=== PATIENT | female | born 1995 | race Hispanic/Latino ===

== ENCOUNTER → 2024-09-01 | Outpatient (CLI) | payer BC | END | disposition home or self-care (01) | LOC: RAH 14:04 | PROVIDERS: ATTEND Student in an Organized Health Care Education/Training Program | DX: S42.031A Displaced fracture of lateral end of right clavicle, initial encounter for closed fracture (principal); M24.111 Other articular cartilage disorders, right shoulder; M25.511 Pain in right shoulder; M79.89 Other specified soft tissue disorders; M19.011 Primary osteoarthritis, right shoulder; X58.XXXA Exposure to other specified factors, initial encounter; Y93.89 Activity, other specified; Y92.89 Other specified places as the place of occurrence of the external cause; Y99.8 Other external cause status | CPT/HCPCS: 73221 ==

== ENCOUNTER 2024-10-04 09:03 | Day surgery (SDC) | payer BC ==
[2024-10-02 14:03] VITALS: BP 160/87; PULSE 61; RESP 18; TEMP 98.8
[2024-10-02 14:20] LABS: BASOPHILS # (AUTO) 0.07 K/uL (0.00-0.20); BASOPHILS % (AUTO) 0.8 % (0.0-5.0); EOSINOPHILS # (AUTO) 0.14 K/uL (0.00-0.70); EOSINOPHILS % (AUTO) 1.6 % (0.0-8.0); HEMATOCRIT 46.1 % (42-54); IMMATURE GRANULOCYTE ABSOLUTE 0.03 K/uL (0-1); LYMPHOCYTES # (AUTO) 1.7 K/uL (1.0-4.8); MEAN CORPUSCULAR HEMOGLOBIN 30.5 pg (27.0-33.0); MEAN CORPUSCULAR HGB CONC 34.1 g/dL (32.0-36.0); MEAN CORPUSCULAR VOLUME 89.5 fL (79-99); MONOCYTES # (AUTO) 0.6 K/uL (0.1-1.0); MONOCYTES % (AUTO) 6.9 % (3.0-13.0); NEUTROPHILS % (AUTO) 70.3 % (40.0-77.0); PLATELET COUNT (AUTO) 245 K/uL (130-400); RED BLOOD CELL COUNT(AUTO) 5.15 MIL/uL (4.50-6.20); RED CELL DISTRIBUTION WIDTH 12.5 % (11.0-15.5); WHITE BLOOD COUNT (AUTO) 8.6 K/uL (4.8-10.8)
[2024-10-02 14:31] LABS: POTASSIUM 4.2 mmol/L (3.5-5.1)
[2024-10-02 14:36] LABS: INR 0.98 (0.85-1.15); PROTHROMBIN TIME 10.6 SEC (9.6-11.6)
[2024-10-02 14:37] LABS: PARTIAL THROMBOPLASTIN TIME 25.6 SEC (26.3-35.5)
[~2024-10-04] VITALS: Ht 182.9 cm; Wt 121.7 kg
[2024-10-04] VITALS (13 sets, daily range): BP systolic 119–136; BP diastolic 60–89; PULSE 62–75; RESP 16–20; TEMP 97–97.9
[~2024-10-04 09:03] MED LIST: MELO-106 PO
[2024-10-04] MEDS: LACTATED RINGERS 1000ML 1,000 ML IV ONE (09:37)
[2024-10-04] MEDS: ceFAZolin SODIUM 2 GM VIAL ONE (09:38)
[2024-10-04] MEDS: ceFAZolin SODIUM 1 GM VIAL ONE ×2 (09:38→13:39)
[2024-10-04] MEDS ORDERED: acetaMINOPHEN 100 ML ONE (09:56)
[2024-10-04] MEDS ORDERED: FAMOTIDINE 20MG VIAL IV ONE (09:56)
[2024-10-04] MEDS ORDERED: ROPivacaine 0.5% 5MG/ML 30ML ONE (10:05)
[2024-10-04] MEDS ORDERED: ketaMINE 50MG/ML SYRINGE 50 MG/ML DISP.SYRIN ONE (10:05)
[2024-10-04] MEDS ORDERED: FENTanyl CITRate PF 50 MCG/1 ML 2ML VIAL ONE (10:07)
[2024-10-04] MEDS ORDERED: proPOFol 10 MG/ML 20ML VIAL IV ONE (10:07)
[2024-10-04] MEDS ORDERED: rocuRONium bROMide 10MG/1ML 5ML VL ONE ×3 (10:07→14:46)
[2024-10-04] MEDS ORDERED: dexaMETHasone SOD PHOSPHATE 10MG/ML 1ML VIAL ONE (12:14)
[2024-10-04] MEDS ORDERED: ondanSETRON 4MG INJ ONE (12:14)
[2024-10-04] MEDS ORDERED: EPINEPHrine PF 1MG (1:1,000) 1 MG/ML AMP ONE (12:22)
[2024-10-04] MEDS: ceFAZolin SODIUM 1 GM VIAL IRRIG ONE ×2 (13:09→14:27)
[2024-10-04] MEDS ORDERED: ePHEDrine SULFate 50 MG/ML AMPULE ONE (14:23)
[2024-10-04] MEDS ORDERED: GLYCOPYRROLATE 0.2 MG/ML 5 ML VIAL ONE (15:18)
[2024-10-04] MEDS ORDERED: NEOSTIGMINE METHYLSULFATE 1MG/ML IV ONE (15:19)
[2024-10-04] MEDS ORDERED: HYDR-4060 PO (15:36)
[2024-10-04] MEDS: ketOROlac 30MG VIAL (30MG/ML) ONE (16:01)
--- NOTE | 2024-10-04 16:40 | OP ---
Operative Note: DATE OF PROCEDURE: 10/04/24 SURGEON: AILYN JOINER MD AWNING MAKER AND INSTALLER: Donnell Darby ANESTHESIA: General and interscalene block ANESTHESIOLOGIST/STAFF COMMAND AND CONTROL OFFICER: Makenna Pires and Carlyle Fritz PREOPERATIVE DIAGNOSIS: Right shoulder superior labral anterior to posterior POSTOPERATIVE DIAGNOSIS: Right shoulder superior labral anterior to posterior PROCEDURE: Right shoulder arthroscopic labral repair ESTIMATED BLOOD LOSS: 10 cc FINDINGS: On in reading the shoulder joint with the arthroscope from [facility] standard posterior portal were able to visualize the shoulder joint with diffuse mild synovitis. After making our anterior portal we could probe the labrum N/C significant excursion of the superior aspect with the even more excursion of the superior anterior aspect. When visualizing the rotator cuff the subscapularis insertion was intact. long head of the biceps exited the rotator interval with healthy-appearing tissue. The supraspinatus and infraspinatus tendons were in tact. INDICATIONS: 29-year-old male with a right shoulder pain who was failing conservative management. He was found on MRI to have a SLAP tear. Clinically he had symptoms and signs that were consistent with labral tear with minimal other signs positive for subacromial impingement. After discussion of the risks, benefits, and alternatives, he voluntarily agreed to undergo the aforementioned procedure. DESCRIPTION OF PROCEDURE: Patient was properly identified in the preoperative holding area. Surgical site marking was verified and surgery consent reviewed. The patient was then taken to the operating room and placed in supine position on the OR table. After induction of general anesthesia, preoperative antibiotics were given, all bony prominences were well-padded as the patient was transitioned into beach chair position. The right upper extremity was then prepped and draped in usual sterile fashion. Surgical time out was done verifying correct surgery, side, site, and location to be performed. We then began the procedure by using an 18-gauge spinal needle to inject the shoulder joint with normal saline to distend the joint capsule. A posterior lateral portal was established using 11 blade and we inserted our arthroscope through this portal. We established an anterior portal using needle localization under direct visualization and placed a working cannula through this portal. We then performed a diagnostic arthroscopy with the aforementioned findings. We then evaluated the tear of the labrum along the superior and anterior aspect of the glenoid. We noted it to be redundant with increased excursion from 11 o'clock to 1 o'clock. We noted complete detachment around 2 o'clock to 3 o'clock. We debrided the footprint of the insertion site. We then passed a 1.8 mm FiberTak suture anchor anteriorly around the 1 o'clock position. Using a superior portal and a Lasso type device we passed the suture around the labrum and cinched it down in the anchor. We debrided some of the free edge of the labrum between the 12 o'clock to 1 o'clock position. We attempted to achieve and angle for further repair of the posterior superior portion with a our posterior and superior portals without adequate angle. We noted that the labrum still had some increased redundancy anteriorly and elected to place a 2nd 1.8 mm FiberTak suture anchor at the 2 o'clock position. Due to inability to achieve and angle for further repair, we elected to leave the remaining tissue was it was. The long head of the biceps appeared healthy so we elected to not perform a any kind of tenotomy or tenodesis. We then removed as much of the arthroscopic fluid as possible and removed the arthroscopic instruments and camera. We expressed some the remaining fluid from the surrounding soft tissues. 3-0 nylon was then used to close the skin portals. Sterile soft dressing was applied. Patient was then placed into a shoulder immobilizer, awakened from anesthesia, and taken the recovery room in stable condition. AILYN JOINER MD Oct 04, 2024 16:40
== END 2024-10-04 16:34 | disposition home or self-care (01) ==
LOC: DAH 09:03 → EDSEX 14:00 → DAH 16:34
PROVIDERS: ATTEND Student in an Organized Health Care Education/Training Program
DX: S43.431A Superior glenoid labrum lesion of right shoulder, initial encounter (principal); M24.111 Other articular cartilage disorders, right shoulder; M25.511 Pain in right shoulder; E11.9 Type 2 diabetes mellitus without complications; I10 Essential (primary) hypertension; Z87.891 Personal history of nicotine dependence; Z90.89 Acquired absence of other organs; Z98.890 Other specified postprocedural states; Z79.01 Long term (current) use of anticoagulants; Z79.899 Other long term (current) drug therapy; X58.XXXA Exposure to other specified factors, initial encounter; Y93.89 Activity, other specified; Y92.89 Other specified places as the place of occurrence of the external cause; Y99.8 Other external cause status
CPT/HCPCS: 80048; 85025; 85610; 85730; 36415; 29807; 64415; C1713 ×4; A4663; J7120 ×2; J3490 ×7; J3010; J0690 ×4; J1100; J0171; J2704; J2405; J1885; J2710; J2795; A6223; A4649 ×2; A4930; A5120; A4215; A4223; A4222; A4221; A4450; A4600

== ENCOUNTER 2024-12-09 13:17 | Emergency (ER) | payer BC ==
[~2024-12-09] VITALS: Ht 182.9 cm; Wt 120.2 kg
[~2024-12-09 13:17] MED LIST changes: +HYDR-4060 PO
--- NOTE | 2024-12-09 13:23 | ERN ---
ED Note History of Present Illness Stated Complaint: LEFT HAND LACERATION Chief Complaint: Laceration/Avulsion Time Seen by MD: 13:19 Time Seen by Midlevel: 13:22 Dictation: 29-year-old male with no past medical history coming in with laceration to the left 3rd digit happened prior to arrival with a metal ring. Allergies: Coded Allergies: shellfish derived (Unverified Allergy, Unknown, 12/09/24) Home Meds Active Scripts Hydrocodone/Acetaminophen (Hydrocodon-Acetaminophen 5-325) 5 Mg-325 Mg Tablet, 1-2 TAB PO Q4HPRN PRN for pain for 5 Days, #60 TAB 0 Refills Prov:AILYN JOINER MD 10/04/24 Reported Medications Meloxicam (Meloxicam) 7.5 Mg Tablet, 1 TAB PO DAILY PRN for pain 10/02/24 Review of System Dictation Constitutional: Negative for fever,chills, and weight loss Eyes: Negative for injury, pain,redness, and discharge ENT: Negative for injury,pain or swelling Cardiovascular: Negative for chest pain, palpitations, and edema Respiratory: Negative for shortness of breath, cough, and wheezing, Abdomen/GI: Negative for abdominal pain, nausea, vomiting, diarrhea, and constipation Back: Negative for injury and pain : Negative for injury, bleeding and discharge MS/Extremity: Left 3rd digit laceration Skin: Negative for rash, and discoloration Neuro: Negative for headache, weakness, numbness, tingling, and seizure Psych: Negative for suicide ideation, homicidal ideation, and hallucinations Review of Systems: was completed Initial Vital Sign VS Vital Signs Date Time Temp Pulse Resp B/P (MAP) Pulse Ox O2 Delivery O2 Flow Rate FiO2 12/09/24 13:22 98.4 60 18 135/83 98 Room Air 12/09/24 13:26 0 21 Physical Exam Dictation General: awake, alert, NAD Head/Face: Normocephalic, atraumatic Eyes: PERRL, EOMI, vision at baseline ENT: oral cavity clear, TMs clear, no signs of infection Neck: Trachea midline, supple, no nuchal rigidity Cardiovascular: RRR, normal S1/S2, No MRGs, no JVD Respiratory: CTAB, no respiratory distress, No rales or wheezes Abdomen: Soft, non-tender, non-distended, normal bowel sounds, no guarding or rebound. Skin: Warm, dry, normal turgor, no rash, 2.5 cm laceration to the left 3rd digit MS/Extremity: Pulses equal, no cyanosis, neurovascular intact, FROM Neuro: COAx4, GCS 15, strength 5/5, CN 2-12 intact, normal cerebellar exam, normal gait, Psych: Normal behavior, mood, and affect normal ED Course ED Course Orders Procedure Category Date Status Time Lidocaine Hcl 1% 20ml PHA 12/09/24 Complete Vial (Lidocaine Hc 13:20 Neomy PHA 12/09/24 In Process Sulf/Bacitra/Polymyxin 14:00 Neomy PHA 12/09/24 Complete Sulf/Bacitra/Polymyxin 13:39 Current Medications Medications (Trade) Dose Ordered Sig/Erin Route PRN Reason Start Time Stop Time Status Last Admin Dose Admin Lidocaine HCl (Lidocaine HCl 1% 20ml Vial) 20 ml ONCE STAT INJ 12/09/24 13:20 12/09/24 13:21 DC Neomycin/ Polymyxin/ Bacitracin (Triple Antibiotic Ointment) 1 appl ONCE ONCE TP 12/09/24 14:00 12/09/24 14:01 Neomycin/ Polymyxin/ Bacitracin (Triple Antibiotic Ointment) 1 appl ONCE STAT TP 12/09/24 13:39 12/09/24 13:40 DC Vital Signs Date Time Temp Pulse Resp B/P (MAP) Pulse Ox O2 Delivery O2 Flow Rate FiO2 12/09/24 13:31 98.8 74 12 124/65 96 Room Air* 0 21 12/09/24 13:26 98.4 60 18 135/83 98 Room Air* 0 21 12/09/24 13:22 98.4 60 18 135/83 98 Room Air Medical Decision Making MDM MDM: 29-year-old male with no past medical history coming in with laceration to the left 3rd digit happened prior to arrival with a metal ring. On physical exam there is 2.5 cm wound to the left 3rd digit, minimal blood noted. Patient has full range of motion to the finger. Low suspicion for tendon involvement. Patient states it is last tetanus shot was not 2020. See procedure notes for wound repair. Discussed patient on wound care and when to return back to the ER. Patient verbalized understanding, answered all questions. Differential diagnosis: Finger laceration, tendon involvement, laceration with arterial involvement Rationale: Tests considered and ordered secondary to shared decision making include: Previous outside records reviewed: Old ER visits. Risk of complication and/or morbidity or mortality of patient management: None Medications-Per medication reconciliation Need for hospitalization: Patient does not meet criteria for hospitalization. Need for emergency major/minor surgery: No There are no social concerns with this patient. Prescription drug management Prescriptions will include symptomatic care Patient's prior external medical records from other ER visits were reviewed by me as indicated. Prior testing and results from previous visits were reviewed. Prior tests were taken into account with medical decision making and resource utilization, independent historian/historians were used to obtain complete medical history. I independently interpreted the test that were performed, results were reviewed by me and considered findings on radiology if ordered. Medical management and examination interpretation discussions were had by me with other qualified healthcare professionals as indicated for the patient's care. Procedure Wound Location: upper extremity (left 3rd digit) Wound Explored: clean Betadine Prep?: Yes Anesthesia: 1% Lidocaine Wound Debrided: minimal Wound Repaired With: sutures Suture Size/Type: 4:0 Number of Sutures: 4 DX & DISP Disposition: Discharge Departure Impression: Primary Impression: Finger laceration Condition: Stable Scripts Cephalexin Monohydrate (Keflex) 500 Mg Cap 500 MG PO BID for 7 Days, #14 CAP Prov: ALAN MENJIVAR CLIENT CARE COORDINATOR 12/09/24 Additional Instructions: Clean wound with soap and water. Finish antibiotics. You can take Tylenol or Motrin [id number] for pain management. If you notice any signs of infection please return back to the ER. You have to return back to the ER in 7- 10 days to remove the sutures. Referrals: SELF,REFERRAL (PCP) Time of Disposition: 13:44 I have reviewed the case, and I agree with, Diagnosis and Plan ALAN MENJIVAR NP Dec 09, 2024 13:23
[2024-12-09 13:31] VITALS: BP 124/65; PULSE 74; RESP 12; TEMP 98.8; O2SAT 96
[2024-12-09] MEDS: NEOMY SULF/BACITRA/POLYMYXIN B 1 EACH PACKET TP STA (13:42)
[2024-12-09] MEDS: NEOMY SULF/BACITRA/POLYMYXIN B 1 EACH PACKET TP ONE (13:42)
[2024-12-09] MEDS: LIDOCAINE HCL 1% 20 ML VIAL INJ STA (13:42)
[2024-12-09] MEDS ORDERED: CEPH500B PO (13:44)
== END 2024-12-09 13:49 | disposition home or self-care (01) ==
LOC: EDH 13:17
DX: S61.213A Laceration without foreign body of left middle finger without damage to nail, initial encounter (principal); W26.8XXA Contact with other sharp object(s), not elsewhere classified, initial encounter; Y93.89 Activity, other specified; Y92.89 Other specified places as the place of occurrence of the external cause; Y99.8 Other external cause status
CPT/HCPCS: 12001; 99283

== ENCOUNTER 2024-12-16 10:37 | Emergency (ER) | payer BC ==
[~2024-12-16] VITALS: Ht 182.9 cm; Wt 120.2 kg
[~2024-12-16 10:37] MED LIST changes: +CEPH500B PO
--- NOTE | 2024-12-16 10:45 | NUR ---
X4 SUTURES TO LT 3RD DIGIT REMOVED BY DR CHRISTOPHER, PT TOLERATED WELL.
[2024-12-16] MEDS ORDERED: CEPH500B PO (10:50)
--- NOTE | 2024-12-16 10:51 | ERN ---
General Stated Complaint: REMOVE DRU Time Seen by MD: 10:38 History of Present Illness Initial Comments Otherwise healthy 29-year-old male who presents for wound infection and suture removal. Patient cut his middle finger on the left hand but a week ago. Wounds been healing well there is a little bit of tenderness. No other symptoms. Allergies: Coded Allergies: shellfish derived (Unverified Allergy, Unknown, 12/09/24) Home Meds Active Scripts Cephalexin Monohydrate (Keflex) 500 Mg Cap, 500 MG PO BID for 7 Days, #14 CAP Prov:ALAN MENJIVAR BIRD SITTER 12/09/24 Hydrocodone/Acetaminophen (Hydrocodon-Acetaminophen 5-325) 5 Mg-325 Mg Tablet, 1-2 TAB PO Q4HPRN PRN for pain for 5 Days, #60 TAB 0 Refills Prov:AILYN JOINER MD 10/04/24 Reported Medications Meloxicam (Meloxicam) 7.5 Mg Tablet, 1 TAB PO DAILY PRN for pain 10/02/24 Past Medical History Past Medical History: No Pertinent History Past Surgical History: Tonsillectomy, Other Surgical History Other: RIGHT SHOULDER SX, TAILBONE ROS Dictation CONSTITUTIONAL: No chills, no fever, no weakness, no diaphoresis, no malaise. HEAD/FACE: No signs of trauma. EENT: No eye pain, no blurred vision, no tearing, no double vision, no ear pain, no ear discharge, no nose pain, no nasal congestion, no throat pain, no throat swelling, no mouth pain. RESPIRATORY: No cough, no orthopnea, no SOB, no stridor, no wheezing. CARDIOVASCULAR: No chest pain, no edema, no palpitations, no syncope. GASTROINTESTINAL/ABDOMINAL: No abdominal pain, no constipation, no diarrhea, no nausea, no vomiting. GENITOURINARY: No abnormal discharge, no dysuria, no frequent urination, no hematuria. No complaints of pain in the genitals. MUSCULOSKELETAL: No back pain, no gout, no joint pain, no joint swelling, no muscle pain, no muscle stiffness, no neck pain. INTEGUMENTARY: No change in color, no change in hair/nails, no dryness, no le kenn, no lumps, no rash. NEUROLOGICAL/PSYCH: No anxiety, not depressed, no emotional problem, no headache, no numbness, no pre-existing deficit, no history of seizures, no tremors, no weakness. HEMATOLOGIC/LYMPHATIC: Not anemic, no history of blood clots, no apparent bleeding, no bruising, glands not swollen. All Systems Negative, Except as Noted. Physical Exam Physical Exam Dictation VITAL SIGNS: Reviewed. GENERAL APPEARANCE: Alert, oriented x3, no acute distress, obese. HEAD AND FACE: Non-traumatic. EYES: PERRL, pink conjunctivas, eyelid no trauma, anterior chamber clear. EARS: Pinnas intact and no signs of trauma or erythema. Ear canals clear and no discharge. TMs no erythema. NOSE: No discharge, no bleeding. OROPHARYNX: Mouth normal, teeth no caries, tongue pink. Pharynx clear, no erythema. Tonsils no exudates, no abscesses noted. Mucous membrane moist. NECK: Supple, non-tender, no thyromegaly, no masses, no JVD, no bruits. BREAST: Deferred. CHEST: No tenderness, no crepitus, no paradoxical movement, no retractions. LUNGS: Clear, well-ventilated, symmetric, no rales, no wheezing, no rhonchi, no stridor, good breath sounds bilaterally. HEART: Regular rate, regular rhythm, no murmur, no gallops. VASCULAR: No peripheral edema. ABDOMEN: Soft, positive bowel sounds, nondistended, no guarding, nontender, no rebound, no masses no hepatomegaly, no splenomegaly, no Vargas's sign, no hernias. RECTAL: Deferred. GENITAL: Deferred. NEUROLOGICAL: Normal speech, gross motor function intact, gross sensory function intact. MUSCULOSKELETAL: Left finger well healing. EXTREMITIES: Nontender, full range of motion. SKIN: Color pink, dry, no turgor, no rash, no lacerations, no abrasions, no contusions. LYMPHATICS: Deferred. MDM CC: Suture removal with pain and erythema surrounding the finger Historian: Patient Comorbidities: None Limitations by social determinants of health: None Vital signs are stable Differential diagnosis: Mild finger infection/cellulitis, suture removal Sutures removed without complications. Four sutures. Wounds well healing but this is a bit of surrounding erythema. We will recommend topical antibiotics and we will give him a prescription for Keflex. Patient was agreeable to the plan. We will DC. DX & DISP Disposition: Discharge Departure Impression: Primary Impression: Visit for suture removal Additional Impression: Finger infection Condition: Stable Scripts Cephalexin Monohydrate (Keflex) 500 Mg Cap 1 CAP PO TID for 10 Days, #30 CAP 0 Refills Prov: TAMIKO CHRISTOPHER DO 12/16/24 Additional Instructions: The sutures were removed here in the ER. The wound appears to be well healing. There is some mild surrounding redness consistent with possible infection. I have prescribed cephalexin, which is an antibiotic. Please take as prescribed. I also recommend that you apply an [id number] antibiotic cream twice per day for the next few days. Keep the wound clean with soap and water. You can keep it covered with a Band- Aid. Please return to the emergency department if you have any concerns. Referrals: SELF,REFERRAL (PCP) TAMIKO CHRISTOPHER DO Dec 16, 2024 10:50
[2024-12-16 11:00] VITALS: BP 125/78; PULSE 76; RESP 16; TEMP 97.5; O2SAT 98
== END 2024-12-16 11:07 | disposition home or self-care (01) ==
LOC: EDH 10:37
DX: L08.9 Local infection of the skin and subcutaneous tissue, unspecified (principal); S61.213D Laceration without foreign body of left middle finger without damage to nail, subsequent encounter; Z90.89 Acquired absence of other organs; X58.XXXD Exposure to other specified factors, subsequent encounter
CPT/HCPCS: 99283